=== PATIENT | male | born 1935 | race Caucasian/White ===

== ENCOUNTER 2017-12-22 11:25 | Emergency (ER) | payer MEDICARE, BC ==
[~2017-12-22] VITALS: Ht 193 cm; Wt 96.2 kg
--- NOTE | 2017-12-22 11:50 | NUR ---
Dr. Mejia at bedside for MSE.
--- NOTE | 2017-12-22 13:11 | NUR ---
Patient discharged to home in stable conditon. Written and verbal after care instructions given. Patient verbalizes understanding of instructions.
== END 2017-12-22 13:13 | disposition home or self-care (01) ==
LOC: ER 11:25
DX: S89.92XA Unspecified injury of left lower leg, initial encounter (principal); M25.462 Effusion, left knee; I10 Essential (primary) hypertension; E11.9 Type 2 diabetes mellitus without complications; K21.9 Gastro-esophageal reflux disease without esophagitis; W18.30XA Fall on same level, unspecified, initial encounter; Y93.89 Activity, other specified; Y92.89 Other specified places as the place of occurrence of the external cause; Y99.8 Other external cause status
CPT/HCPCS: 29505; 73564; 99284; A4663